=== PATIENT | male | born 1985 | race Caucasian/White ===

== ENCOUNTER 2017-06-27 16:40 | Emergency (ER) | payer BC, MEDICAID ==
[2017-06-27] MEDS ORDERED: Sodium Chloride 0.9% 10 ML Syringe FLUSH PRN (17:33)
[2017-06-27] MEDS ORDERED: HYDROmorphone 1 MG/ML Syringe IVPUSH ONE (17:33)
[2017-06-27] MEDS ORDERED: diphenhydrAMINE 50 MG/ML SDV IVPUSH ONE (17:33)
[2017-06-27] MEDS ORDERED: Vancomycin 500 MG SDV IV ONE (17:34)
[2017-06-27] MEDS ORDERED: Lidocaine 1% 30 ML SDV INJECT ONE (17:34)
--- NOTE | 2017-06-27 18:41 | EDM.PDOC ---
Scribed by Henny Stapleton 06/27/17 2021 for Jeanmarie Zaragoza MD ED HPI GENERAL MEDICAL PROBLEM - General Chief Complaint: Skin Complaint Stated Complaint: INFECTION ON RIGHT BUTTOCK Time Seen by Provider: 06/27/17 17:15 Source of Information: Reports: Patient, RN, RN Notes Reviewed History Limitations: Reports: No Limitations - History of Present Illness INITIAL COMMENTS - FREE TEXT/NARRATIVE: Patient presents with abscess to the right buttock that began 4 days ago.Last night spontaneously drained purulent material. Today patient felt that the redness was spreading and felt that he had a low grade temperature and chills. Denies history of MRSA. Location: Reports: Other (right buttock) Quality: Reports: Ache Severity: Moderate Improves with: Reports: None Worsens with: Reports: None Associated Symptoms: Reports: No Other Symptoms - Related Data Allergies Allergy/AdvReac Type Severity Reaction Status Date / Time cefaclor [From Ceclor] Allergy hives and Verified 06/27/17 16:58 joint swelling Home Meds: Home Meds . [No Known Home Meds] 06/27/17 [History] Past Medical History HEENT History: Reports: Other (See Below) Other HEENT History: [place] teeth removed. Cardiovascular History: Reports: None Respiratory History: Reports: None Gastrointestinal History: Reports: None Genitourinary History: Reports: None Musculoskeletal History: Reports: None Neurological History: Reports: None Psychiatric History: Reports: None Endocrine/Metabolic History: Reports: None Hematologic History: Reports: None Immunologic History: Reports: None Oncologic (Cancer) History: Reports: None Dermatologic History: Reports: None - Past Surgical History Male Surgical History: Reports: None Social & Family History - Tobacco Use Smoking Status *Q: Current Every Day Smoker Years of Tobacco use: 12 Packs/Tins Daily: 1 - Caffeine Use Caffeine Use: Reports: Coffee - Recreational Drug Use Recreational Drug Use: No ED ROS GENERAL - Review of Systems Review Of Systems: ROS reveals no pertinent complaints other than HPI. ED EXAM, SKIN/RASH Exam: See Below Exam Limited By: No Limitations General Appearance: Alert, WD/WN, No Apparent Distress Respiratory/Chest: No Respiratory Distress, Lungs Clear, Normal Breath Sounds, No Accessory Muscle Use, Chest Non-Tender Cardiovascular: Normal Peripheral Pulses, Regular Rate, Rhythm, No Edema, No Gallop, No JVD, No Murmur, No Rub Extremities: Normal Inspection, Normal Range of Motion, Non-Tender, No Pedal Edema, Normal Capillary Refill Neurological: Alert, Oriented, CN II-XII Intact, Normal Cognition, Normal Gait, Normal Reflexes, No Motor/Sensory Deficits Psychiatric: Normal Affect, Normal Mood Skin: Other (Right buttock with 3.5cm flucutant abscess with 1cm central excoriated center with small amount of purulent drainage. The flucutant abscess was surrounded by 8cm tender erythema.) ED SKIN PROCEDURES - I&D Site: Rt buttock Skin Prep: Chlorhexidine (Hibiciens), Saline Local Anesthesia: Lidocaine: 1% Plain Local Anesthetic Volume: Other (20cc) Area Incised With: 11 Blade Drainage: Purulent, Bloody, Moderate Amount Probed to Break Up Loculations: Yes Packed With: 1/4 in. Iodoform Sterile Dressinx4(s) Complications: No Course - Vital Signs Last Recorded V/S: Last Vital Signs Temp 37.4 C 06/27/17 16:53 Pulse 92 06/27/17 16:53 Resp 16 06/27/17 16:53 BP 134/80 06/27/17 16:53 Pulse Ox 98 06/27/17 16:53 - Orders/Labs/Meds Orders: Active Orders 24 hr Category Date Time Status Peripheral IV Care [RC] . DIRECTED Care 06/27/17 17:33 Active CULTURE WOUND + SMEAR [RM] Stat Lab 06/27/17 18:30 Ordered Sodium Chloride 0.9% [Saline Flush] Med 06/27/17 17:33 Active 10 ml FLUSH ASDIRECTED PRN Peripheral IV Insertion Adult [OM.PC] Stat Oth 06/27/17 17:33 Ordered Medication Orders Sodium Chloride (Saline Flush) 10 ml FLUSH ASDIRECTED PRN PRN Reason: Keep Vein Open Last Admin: 06/27/17 17:50 Dose: 10 ml Labs: Laboratory Tests 06/27/17 06/27/17 Range/Units 17:38 17:38 WBC 9.9 (5.0-10.0) 10^3/uL RBC 5.04 (4.6-6.2) 10^6/uL Hgb 15.1 (14.0-18.0) g/dL Hct 42.9 (40.0-54.0) % MCV 85.1 (80-100) fL MCH 30.0 (27.0-34.0) pg MCHC 35.2 H (33.0-35.0) g/dL Plt Count 182 (150-450) 10^3/uL Neut % (Auto) 61.7 (42.2-75.2) % Lymph % (Auto) 27.0 (20.5-50.1) % [place] % (Auto) 8.5 H (2-8) % Eos % (Auto) 2.6 (1.0-3.0) % Baso % (Auto) 0.2 (0.0-1.0) % C-Reactive Protein 1.8 H (0.0-1.3) mg/dL Meds: Medications Generic Name Dose Route Start Last Admin Trade Name Freq PRN Reason Stop Dose Admin Sodium Chloride 10 ml 06/27/17 17:33 06/27/17 17:50 Saline Flush FLUSH 10 ml ASDIRECTED PRN Administration Keep Vein Open Discontinued Medications Generic Name Dose Route Start Last Admin Trade Name Freq PRN Reason Stop Dose Admin Diphenhydramine HCl 25 mg 06/27/17 17:33 06/27/17 17:50 Benadryl IVPUSH 06/27/17 17:34 25 mg ONETIME ONE Administration Hydromorphone HCl 1 mg 06/27/17 17:33 06/27/17 17:59 Dilaudid IVPUSH 06/27/17 17:34 1 mg ONETIME ONE Administration Lidocaine HCl 30 ml 06/27/17 17:34 06/27/17 18:06 Xylocaine-Mpf 1% INJECT 06/27/17 17:35 30 ml ONETIME ONE Administration Vancomycin HCl 1,350 mg 06/27/17 17:34 06/27/17 18:30 Vancomycin IV 06/27/17 17:35 1,350 mg ONETIME ONE Administration Departure - Departure Time of Disposition: 19:00 Disposition: Home, Self-Care 01 Condition: Good Clinical Impression: Cellulitis and abscess of buttock - Discharge Information Instructions: Cellulitis, Adult, [id number], Incision and Drainage, Care After Referrals: PCP,Unobtain [Ordering Only Provider] - Forms: ED Department Discharge Additional Instructions: RX: Bactroban ointment 2%. RX: Doxycycline 100mg. RX: Clindamycin 300mg. Follow up in clinic in 2 days. - My Orders Last 24 Hours: My Active Orders 06/27/17 17:33 Peripheral IV Care [RC] . DIRECTED Sodium Chloride 0.9% [Saline Flush] 10 ml FLUSH ASDIRECTED PRN Peripheral IV Insertion Adult [OM.PC] Stat 06/27/17 18:30 CULTURE WOUND + SMEAR [RM] Stat - Assessment/Plan Last 24 Hours: My Active Orders 06/27/17 17:33 Peripheral IV Care [RC] . DIRECTED Sodium Chloride 0.9% [Saline Flush] 10 ml FLUSH ASDIRECTED PRN Peripheral IV Insertion Adult [OM.PC] Stat 06/27/17 18:30 CULTURE WOUND + SMEAR [RM] Stat I have read and agree with the documentation that has been completed regarding this visit. By signing this record, I attest that the documentation was completed in my physical presence and is an accurate record of the encounter.
== END 2017-06-27 20:10 | disposition home or self-care (01) ==
LOC: DL.ED 16:40
DX: L02.31 Cutaneous abscess of buttock (principal); L03.317 Cellulitis of buttock; Z88.8 Allergy status to other drugs, medicaments and biological substances; F17.210 Nicotine dependence, cigarettes, uncomplicated
CPT/HCPCS: 10061; 36415; 85025; 86140; 87070; 87077; 87186; 87205; 96365; 96366; 96375; 99284; J1170; J1200; J3370; J7050